=== PATIENT | female | born 1985 | race Caucasian/White ===

== ENCOUNTER 2018-10-10 13:43 | Emergency (ER) | payer OTHER ==
[~2018-10-10] VITALS: Ht 149.9 cm; Wt 55.3 kg
[2018-10-10 14:53] VITALS: BP 129/73
--- NOTE | 2018-10-10 15:29 | PHYS DOC ---
Past Medical History Past Medical History: GERD Past Surgical History: No Surgical History Alcohol Use: None Drug Use: None Adult General Chief Complaint Chief Complaint: BURN/SMOKE INHALATION HPI HPI Patient is a 33 year old female who presents with right ear [place] upon the unit and that coffee on her left hand today at 1330. Review of Systems Review of Systems Constitutional: Denies fever or chills [] Eyes: Denies change in visual acuity, redness, or eye pain [] HENT: Denies nasal congestion or sore throat [] Respiratory: Denies cough or shortness of breath [] Cardiovascular: No additional information not addressed in HPI [] GI: Denies abdominal pain, nausea, vomiting, bloody stools or diarrhea [] : Denies dysuria or hematuria [] Musculoskeletal: Denies back pain or joint pain [] Integument: Burn to left hand. Denies rash or skin lesions [] Neurologic: Denies headache, focal weakness or sensory changes [] All other systems were reviewed and found to be within normal limits, except as documented in this note. Allergies Allergies Allergies Coded Allergies Type Severity Reaction Last Updated Verified No Known Drug Allergies 10/10/18 No Physical Exam Physical Exam Constitutional: Well developed, well nourished, no acute distress, non-toxic appearance. [] HENT: Normocephalic, atraumatic, bilateral external ears normal, oropharynx moist, no oral exudates, nose normal. [] Eyes: PERRLA, EOMI, conjunctiva normal, no discharge. [] Neck: Normal range of motion, no tenderness, supple, no stridor. [] Cardiovascular:Heart rate regular rhythm, no murmur [] Lungs & Thorax: Bilateral breath sounds clear to auscultation [] Abdomen: Bowel sounds normal, soft, no tenderness, no masses, no pulsatile masses. [] Skin: Warm, dry, no erythema, no rash. [] Back: No tenderness, no CVA tenderness. [] Extremities: No tenderness, no cyanosis, no clubbing, ROM intact, Left hand 1+ edema. Left anterior hand redness due to superficial burn. [] Neurologic: Alert and oriented X 3, normal motor function, normal sensory function, no focal deficits noted. [] Psychologic: Affect normal, judgement normal, mood normal. [] Current Patient Data Vital Signs Vital Signs Date Time Temp Pulse Resp B/P (MAP) Pulse Ox O2 Delivery O2 Flow Rate FiO2 10/10/18 14:53 97.6 86 16 129/73 (91) 100 Room Air 97.6 EKG EKG [] Radiology/Procedures Radiology/Procedures [] Course & Med Decision Making Course & Med Decision Making Patient is a 33 year old female who presents with right ear [place] upon the unit and that coffee on her left hand today at 1330. Patient rates her pain at a 5. She has a ice pack currently in the hand. There is only redness and 1+ edema to the anterior left hand but there is no open skin, skin peeling, or blisters. Patient has full range of motion in capacity and no weaknesses with that hand. 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 She has no known drug allergies and her primary care is Dr. Hilliard. Staff Physician Addendum: I was working in the ER during the course of this patient's visit. I was available for consultation as needed, but I was not directly involved in the care of this patient. Dragon Disclaimer Dragon Disclaimer This electronic medical record was generated, in whole or in part, using a voice recognition dictation system. Departure Departure Impression: Primary Impression: Burn Disposition: 01 HOME, SELF-CARE Condition: STABLE Referrals: UNKNOWN PCP NAME (PCP) Patient Instructions: Burn Care Additional Instructions: FOLLOW UP WITH OCCUPATIONAL HEALTH. USE ICE AND IBUPROFEN. YOU CAN USE BACITRACIN IF YOU WOULD LIKE. JOY MACDONALD APRN Oct 10, 2018 15:29 SHEILA ZAZUETA MD Oct 11, 2018 13:49
== END 2018-10-10 15:34 | disposition home or self-care (01) ==
LOC: ER 13:43
DX: T20.012A Burn of unspecified degree of left ear [any part, except ear drum], initial encounter (principal); T23.002A Burn of unspecified degree of left hand, unspecified site, initial encounter; K21.9 Gastro-esophageal reflux disease without esophagitis; X12.XXXA Contact with other hot fluids, initial encounter; Y93.89 Activity, other specified; Y92.89 Other specified places as the place of occurrence of the external cause; Y99.8 Other external cause status
CPT/HCPCS: 99282

== ENCOUNTER → 2019-04-30 | Outpatient (CLI) | payer OTHER ==
[2019-04-30 15:52] LABS: BASO # 0.1 x10^3/uL (0.0-0.2); BASO % 1 % (0-3); EOS # 0.1 x10^3/uL (0.0-0.7); EOS % 1 % (0-3); HEMATOCRIT 39.3 % (36.0-47.0); HEMOGLOBIN 13.2 g/dL (12.0-15.5); LYMPH # 1.9 x10^3/uL (1.0-4.8); LYMPH % 16 % (24-48); MEAN CORPUSCULAR HEMOGLOBIN 29 pg (25-35); MEAN CORPUSCULAR HGB CONC 34 g/dL (31-37); MEAN CORPUSCULAR VOLUME 86 fL (79-100); MONO # 0.6 x10^3/uL (0.0-1.1); MONO % 5 % (0-9); NEUT # 9.5 x10^3/uL (1.8-7.7); NEUT % 77 % (31-73); PLATELET COUNT 270 x10^3/uL (140-400); RED BLOOD COUNT 4.58 x10^6/uL (3.50-5.40); RED CELL DISTRIBUTION WIDTH 12.6 % (11.5-14.5); WHITE BLOOD COUNT 12.3 x10^3/uL (4.0-11.0)
== END | disposition home or self-care (01) ==
LOC: LAB 15:23
PROVIDERS: ATTEND Obstetrics & Gynecology
DX: Z32.01 Encounter for pregnancy test, result positive (principal)
CPT/HCPCS: 85025; 86592; 86703; 86762; 86850; 86900; 86901; 87340

== ENCOUNTER → 2019-06-27 | Outpatient (CLI) | payer OTHER ==
--- NOTE | 2019-06-28 10:36 | KCIC ---
PREG MORE THAN OR EQ TO 14 WKS History: Uterine size discrepancy, anatomy evaluation Comparison: March 20, 2019 Findings: Multiple transabdominal sonographic images of the uterus are submitted. Cervix measured 5.7 cm in length. There is now single intrauterine fetus in cephalic presentation. Estimated KANDIS is 8 cm, considered lower limits of normal for age. There is posterior placenta. Midline cord insertion is not well demonstrated, limited evaluation due to position during exam. 2 kidneys were visualized. There is demonstrable cardiac activity 155 bpm. Four-chamber view of the heart is grossly within normal limits. No obvious abnormality is demonstrated of the visualized spine. stomach was visualized. bladder was visualized. There is three-vessel cord. Maternal adnexal regions are not demonstrated. Biometry data are as follows: Biparietal diameter 3.71 cm corresponds 17 weeks 2 days Head circumference 14.81 cm corresponds 18 weeks 0 days Abdominal circumference 11.55 cm corresponds 17 weeks 2 days Femur length 2.54 cm corresponds with 17 weeks 5 days Adjusted ultrasound age 17 weeks 4 days with estimated delivery date of 12/01/2019 LMP age 18 weeks 0 days with estimated delivery date of 11/28/2019 Estimated weight 199 g +/- 29 g HC/AC ratio 1.28, upper limits of normal. Impression: 1. There is a single viable fetus in cephalic presentation, adjusted ultrasound age 17 weeks 4 days with estimated delivery date of 12/01/2019. Midline cord insertion is not well demonstrated on this exam. Estimated KANDIS is at the lower limits of normal for which attention on follow-up is advised. Electronically signed by: Bal Cerrato MD (06/28/2019 10:33 AM) [facility]
== END | disposition home or self-care (01) ==
LOC: KCIC US 10:40
PROVIDERS: ATTEND Obstetrics & Gynecology
DX: O26.842 Uterine size-date discrepancy, second trimester (principal); Z3A.17 17 weeks gestation of pregnancy
CPT/HCPCS: 76805

== ENCOUNTER → 2019-08-26 | Outpatient (CLI) | payer OTHER ==
--- NOTE | 2019-08-26 17:24 | RAD ---
Examination: PREG MORE THAN OR EQ TO 14 WKS History: Estimated weight, amniotic fluid assessment Comparison/Correlation: None Findings: Single living intrauterine gestation is present with cephalic lie. movement is identified with heart rate of 144 bpm. Posterior wall grade 1 placenta noted. No previa noted. Normal quantity of amniotic fluid is identified. Amniotic fluid index is 14.6. Biparietal diameter is 7.08 cm corresponding to 28 weeks 3 days gestation. Head circumference 25.76 cm corresponding to 28 weeks 0 days gestation. Abdominal circumference is 22.69 cm corresponding to 27 weeks 1 day. Femur length 5.11 cm corresponding to 27 weeks 3 days. Head circumference to abdominal circumference ratio is 1.14. Estimated weight is 1052 g +/- 157 g which is at the 58th percentile. Average ultrasound age is 27 weeks 5 days. Ultrasound EDC is 11/20/2019. Maternal cervical length is 6.9 cm. Impression: Single living intrauterine gestation is present with average ultrasound age corresponding to 27 weeks 5 days. Electronically signed by: Hugo Mark MD (08/26/2019 5:21 PM) [facility]
== END | disposition home or self-care (01) ==
LOC: US 15:25
PROVIDERS: ATTEND Obstetrics & Gynecology
DX: O26.842 Uterine size-date discrepancy, second trimester (principal); O41.02X0 Oligohydramnios, second trimester, not applicable or unspecified; Z3A.27 27 weeks gestation of pregnancy
CPT/HCPCS: 76805

== ENCOUNTER → 2019-09-02 | Outpatient (CLI) | payer OTHER ==
[2019-09-02 16:46] LABS: BASO % 0 % (0-3); EOS # 0.2 x10^3/uL (0.0-0.7); EOS % 1 % (0-3); HEMATOCRIT 33.9 % (36.0-47.0); HEMOGLOBIN 11.2 g/dL (12.0-15.5); LYMPH # 2.2 x10^3/uL (1.0-4.8); LYMPH % 11 % (24-48); MEAN CORPUSCULAR HEMOGLOBIN 29 pg (25-35); MEAN CORPUSCULAR HGB CONC 33 g/dL (31-37); MEAN CORPUSCULAR VOLUME 86 fL (79-100); MONO % 5 % (0-9); NEUT % 82 % (31-73); PLATELET COUNT 274 x10^3/uL (140-400); RED BLOOD COUNT 3.94 x10^6/uL (3.50-5.40); RED CELL DISTRIBUTION WIDTH 13.9 % (11.5-14.5); WHITE BLOOD COUNT 19.4 x10^3/uL (4.0-11.0)
[2019-09-02 18:37] LABS: % BANDS 3 % (0-9); % LYMPHS 16 % (24-48); % MONOS 2 % (0-10); % SEGS 79 % (35-66)
[2019-09-02 18:39] LABS: PLT ESTIMATE ADEQUATE (ADEQUATE); POLYCHROMASIA SLIGHT; TEAR DROP CELLS OCC
== END | disposition home or self-care (01) ==
LOC: LAB 15:47
PROVIDERS: ATTEND Obstetrics & Gynecology
DX: Z32.01 Encounter for pregnancy test, result positive (principal)
CPT/HCPCS: 36415; 82950; 85007; 85025; 86592; 86703; 86762; 86850; 86900; 86901; 87340

== ENCOUNTER → 2019-09-18 | Outpatient (CLI) | payer OTHER | END | disposition home or self-care (01) | LOC: LAB 09:19 | PROVIDERS: ATTEND Obstetrics & Gynecology | DX: O09.90 Supervision of high risk pregnancy, unspecified, unspecified trimester (principal) | CPT/HCPCS: 36415; 82947; 82950 ==

== ENCOUNTER 2019-10-17 15:40 | Observation (INO) | payer OTHER ==
[2019-10-17] MEDS ORDERED: IV RINGERS,LACTATED 1000ML 1,000 ML IV SCH (15:42)
== END 2019-10-17 17:23 | disposition home or self-care (01) ==
LOC: 3 SO LND 15:40
PROVIDERS: ADMIT Obstetrics & Gynecology; ATTEND Obstetrics & Gynecology
DX: O24.419 Gestational diabetes mellitus in pregnancy, unspecified control (principal); Z3A.34 34 weeks gestation of pregnancy
CPT/HCPCS: G0378; G0379; 59025

== ENCOUNTER 2019-10-25 09:30 | Observation (INO) | payer OTHER ==
[2019-10-25] MEDS ORDERED: IV RINGERS,LACTATED 1000ML 1,000 ML IV SCH (09:41)
== END 2019-10-25 10:33 | disposition home or self-care (01) ==
LOC: 3 SO LND 09:30
PROVIDERS: ADMIT Obstetrics & Gynecology; ATTEND Obstetrics & Gynecology
DX: O24.419 Gestational diabetes mellitus in pregnancy, unspecified control (principal); Z3A.35 35 weeks gestation of pregnancy
CPT/HCPCS: G0378; G0379; 59025

== ENCOUNTER 2019-11-07 14:52 | Observation (INO) | payer OTHER ==
[2019-11-07] MEDS ORDERED: IV RINGERS,LACTATED 1000ML 1,000 ML IV PRN (15:00)
== END 2019-11-07 15:52 | disposition home or self-care (01) ==
LOC: 3 SO LND 14:52
PROVIDERS: ADMIT Obstetrics & Gynecology; ATTEND Obstetrics & Gynecology
DX: O24.410 Gestational diabetes mellitus in pregnancy, diet controlled (principal); Z3A.37 37 weeks gestation of pregnancy
CPT/HCPCS: G0378; G0379; 59025

== ENCOUNTER 2019-11-08 19:02 | Observation (INO) | payer OTHER ==
[2019-11-08] MEDS ORDERED: ONDANSETRON PF 4 MG/2 ML VIAL. IV PRN (19:15)
[2019-11-08] MEDS ORDERED: IV RINGERS,LACTATED 1000ML 1,000 ML IV PRN (19:15)
[2019-11-08] MEDS ORDERED: ACETAMINOPHEN 325 MG TABLET. PO PRN (19:15)
== END 2019-11-08 19:40 | disposition home or self-care (01) ==
LOC: 3 SO LND 19:02
PROVIDERS: ADMIT Obstetrics & Gynecology; ATTEND Obstetrics & Gynecology
DX: O36.8130 Decreased fetal movements, third trimester, not applicable or unspecified (principal); O26.893 Other specified pregnancy related conditions, third trimester; R51 Headache; Z3A.37 37 weeks gestation of pregnancy
CPT/HCPCS: G0378; G0379; 59025

== ENCOUNTER 2019-11-14 14:47 | Observation (INO) | payer OTHER ==
[2019-11-14] MEDS ORDERED: IV RINGERS,LACTATED 1000ML 1,000 ML IV SCH (15:07)
== END 2019-11-14 15:40 | disposition home or self-care (01) ==
LOC: 3 SO LND 14:47
PROVIDERS: ADMIT Obstetrics & Gynecology; ATTEND Obstetrics & Gynecology
DX: O24.419 Gestational diabetes mellitus in pregnancy, unspecified control (principal); Z3A.38 38 weeks gestation of pregnancy
CPT/HCPCS: G0378; G0379

== ENCOUNTER → 2020-04-17 | Outpatient (CLI) | payer OTHER ==
[2019-11-25 13:40] VITALS: BP 139/87
[~2020-04-17] MED LIST: DOCU-153 PO; IBUP-1027 PO; OXYC1TAB15 PO
[2020-04-17 01:39] LABS: BASO % 0 % (0-3); EOS # 0.2 x10^3/uL (0.0-0.7); EOS % 1 % (0-3); HEMOGLOBIN 13.4 g/dL (12.0-15.5); LYMPH # 3.6 x10^3/uL (1.0-4.8); LYMPH % 32 % (24-48); MEAN CORPUSCULAR HEMOGLOBIN 28 pg (25-35); MEAN CORPUSCULAR HGB CONC 33 g/dL (31-37); MEAN CORPUSCULAR VOLUME 83 fL (79-100); MONO # 0.6 x10^3/uL (0.0-1.1); MONO % 5 % (0-9); NEUT # 6.8 x10^3/uL (1.8-7.7); NEUT % 61 % (31-73); PLATELET COUNT 292 x10^3/uL (140-400); RED BLOOD COUNT 4.81 x10^6/uL (3.50-5.40); RED CELL DISTRIBUTION WIDTH 14.1 % (11.5-14.5); WHITE BLOOD COUNT 11.2 x10^3/uL (4.0-11.0)
[2020-04-17 02:02] LABS: FREE T4 1.02 ng/dL (0.76-1.46); THYROID STIM HORMONE (TSH) 3.171 uIU/mL (0.358-3.74)
[2020-04-17 02:12] LABS: CHOLESTEROL/HDL RATIO 4.3
[2020-04-18 01:08] LABS: HEMOGLOBIN A1C 5.4 % (4.8-5.6)
== END ==
LOC: LAB 01:05
PROVIDERS: ATTEND Obstetrics & Gynecology
DX: Z01.419 Encounter for gynecological examination (general) (routine) without abnormal findings (principal)
CPT/HCPCS: 36415; 80061; 83036; 84439; 84443; 85025

== ENCOUNTER → 2020-04-24 | Outpatient (CLI) | payer OTHER ==
[2019-11-25 13:40] VITALS: BP 139/87
== END | disposition home or self-care (01) ==
LOC: LAB 17:58
PROVIDERS: ATTEND Internal Medicine Pulmonary Disease
DX: Z20.828 Contact with and (suspected) exposure to other viral communicable diseases (principal)
CPT/HCPCS: U0003-CS